=== PATIENT | female | born 1935 | race Caucasian/White ===

== ENCOUNTER 2017-06-06 08:35 | Outpatient (CLI) | payer MEDICARE ==
[2017-06-06 09:56] LABS: Hemoglobin 13.1 g/dL (12.0-16.0); Mean Corpuscular Hemoglobin 27.6 pg (27.0-31.0); Mean Corpuscular Volume 83.7 fl (81.0-99.0); Mean Platelet Volume 9.3 fL (7.4-10.4); Platelet Count 244 thou/uL (130-400); RBC Distribution Width 15.4 % (11.5-14.5); Red Blood Cell (RBC) Count 4.75 mill/uL (4.20-5.40); White Blood Cell (WBC) Count 5.6 thou/uL (4.8-10.8)
[2017-06-06 10:06] LABS: INR-International Normal Ratio 0.9; PTT 25.1 SEC (22.9-36.1); Prothrombin Time 12.7 SEC (12.0-14.7)
[2017-06-06 10:08] LABS: Hemoglobin A1c 5.3 % (4.0-6.0)
[2017-06-06 10:18] LABS: Anion Gap 13 mmol/L (10-20); BUN (Urea Nitrogen) 21 mg/dL (9.8-20.1); Calc. Creatinine Clearance 0 mL/min (70-130); Calcium 9.4 mg/dL (7.8-10.44); Carbon Dioxide 25 mmol/L (23-31); Chloride 104 mmol/L (98-107); Estimated GFR-MDRD 51; Glucose 99 mg/dL (83-110); Potassium 3.1 mmol/L (3.5-5.1); Sodium 139 mmol/L (136-145)
== END 2017-06-06 08:36 | disposition home or self-care (01) ==
LOC: LABBT 08:35
PROVIDERS: ATTEND Orthopaedic Surgery
DX: Z01.810 Encounter for preprocedural cardiovascular examination (principal); Z01.812 Encounter for preprocedural laboratory examination; M17.12 Unilateral primary osteoarthritis, left knee
CPT/HCPCS: 80048; 83036; 85027; 85610; 85730; 86850; 86900; 86901; 87081; 93005; 93010

== ENCOUNTER 2017-06-06 08:45 | Inpatient (IN) | payer MEDICARE ==
[2017-06-06 09:14] VITALS: BMI 30.9
[2017-06-12] MEDS ORDERED: CEFAZOLIN/Water 2 GM/20 ML SYRINGE ONE (10:29)
[2017-06-12] MEDS ORDERED: Tranexamic Acid 1,000 MG/100 ML BAG ONE ×2 (10:29→14:03)
[2017-06-12] MEDS ORDERED: Fentanyl 100 MCG/2 ML VIAL IV PRN (11:17)
[2017-06-12] MEDS ORDERED: Ondansetron PF 4 MG/2 ML Vial IVP PRN ×2 (11:17→13:54)
[2017-06-12] MEDS ORDERED: traMADol HCl 50 MG TAB PO PRN ×3 (11:17→13:54)
[2017-06-12] MEDS ORDERED: Promethazine HCl 25 MG/ML VIAL IM PRN ×3 (11:17→13:54)
[2017-06-12] MEDS ORDERED: Ropivacaine 0.2% 550 ML 550 ML NERVE BLCK SCH (11:17)
[2017-06-12] MEDS ORDERED: Zolpidem Tartrate 5 MG TAB PO PRN (11:17)
[2017-06-12] MEDS ORDERED: Midazolam HCl 2 mg/2 ml Vial ONE (11:18)
[2017-06-12] MEDS ORDERED: HYDROcodone/Acetaminophen 7.5/325 mg Tablet PO PRN ×2 (11:18→13:57)
[2017-06-12] MEDS ORDERED: Fentanyl 100 MCG/2 ML VIAL ONE (11:18)
[2017-06-12] MEDS ORDERED: Bupivacaine 0.25% HCL 30 ML VIAL ONE (11:27)
[2017-06-12] MEDS ORDERED: Neomycin-Polymyxin 1 ML AMP ONE (11:27)
[2017-06-12] MEDS ORDERED: Ondansetron HCl/PF 4 MG/2 ML Vial IVP PRN (12:44)
[2017-06-12] MEDS ORDERED: Promethazine HCl 25 MG/ML VIAL SLOW IVP PRN (12:44)
[2017-06-12] MEDS ORDERED: Acetaminophen 325 MG TAB PO PRN (13:54)
[2017-06-12] MEDS ORDERED: diphenhydrAMINE 25 MG CAP PO PRN (13:54)
[2017-06-12] MEDS ORDERED: Acetaminophen/Codeine 30-300mg Tablet PO PRN ×2 (13:54)
[2017-06-12] MEDS ORDERED: Tranexamic Acid 1,000 MG in Sodium Chloride 0.9% 100 ML IVPB SCH (14:00)
[2017-06-12] MEDS ORDERED: Acetaminophen 1,000 MG in Premix Bag 1 BAG IVPB SCH (14:00)
[2017-06-12] MEDS ORDERED: Ropivacaine 0.5% HCl/PF (150 MG/30 ML VIAL) ONE (14:02)
[2017-06-12] MEDS ORDERED: Ropivacaine 0.2% HCl/PF (40 MG/20 ML VIAL) ONE (14:02)
--- NOTE | 2017-06-12 14:58 | RAD ---
LEFT KNEE TWO VIEWS: History: Post op. FINDINGS: Total knee prosthesis is in place. No fracture. Prosthesis is in good position. IMPRESSION: Post-operative change with placement of left knee prosthesis. POS: [facility]
[2017-06-12] MEDS ORDERED: PROPOFOL 200 MG/20 ML VIAL ONE (15:01)
[2017-06-12] MEDS ORDERED: Ketorolac Tromethamine 30 MG/ML VIAL ONE (15:01)
[2017-06-12] MEDS ORDERED: Ondansetron PF 4 MG/2 ML Vial ONE (15:01)
[2017-06-12] MEDS ORDERED: ePHEDrine/0.9% NaCl/PF SYRINGE 50 mg/10 ml ONE (15:01)
[2017-06-12] MEDS ORDERED: Lidocaine 1% PF 5 ML VIAL ONE (15:01)
[2017-06-12] MEDS ORDERED: CEFAZOLIN/Water 2 GM/20 ML SYRINGE SLOW IVP SCH (18:00)
[2017-06-12] MEDS: Sodium Chloride 0.9% 1,000 ML IV SCH (18:29)
[2017-06-12] MEDS: Aspirin 81 mg Enteric Coated Tablet PO SCH (20:27)
[2017-06-12] MEDS: Atorvastatin Calcium 40 MG TAB PO SCH (20:27)
[2017-06-12] MEDS: CEFAZOLIN/Water 2 GM/20 ML SYRINGE SLOW IVP SCH (20:27)
[2017-06-12] MEDS: Senokot S 8.6-50 MG TAB PO SCH (20:28)
[2017-06-12] MEDS: Ferrous Gluconate 324 MG TAB PO SCH (20:28)
[2017-06-12] MEDS: HYDROcodone/Acetaminophen 7.5/325 mg Tablet PO PRN (22:21)
[2017-06-13] MEDS: Sodium Chloride 0.9% 1,000 ML IV SCH ×3 (00:22→20:11)
[2017-06-13] MEDS: HYDROcodone/Acetaminophen 7.5/325 mg Tablet PO PRN ×4 (03:48→20:18)
[2017-06-13] MEDS: CEFAZOLIN/Water 2 GM/20 ML SYRINGE SLOW IVP SCH (04:23)
[2017-06-13 06:14] LABS: Hemoglobin 10.7 g/dL (12.0-16.0); Mean Corpuscular HGB CONC 32.6 g/dL (32.0-36.0); Mean Corpuscular Hemoglobin 27.8 pg (27.0-31.0); Mean Corpuscular Volume 85.2 fl (81.0-99.0); Mean Platelet Volume 9.2 fL (7.4-10.4); Platelet Count 171 thou/uL (130-400); RBC Distribution Width 15.4 % (11.5-14.5); Red Blood Cell (RBC) Count 3.84 mill/uL (4.20-5.40); White Blood Cell (WBC) Count 7.2 thou/uL (4.8-10.8)
[2017-06-13] MEDS: Levothyroxine Sodium 100 MCG TAB PO SCH (06:38)
--- NOTE | 2017-06-13 08:30 | CON ---
DATE OF CONSULTATION: 06/13/2017 REASON FOR CONSULTATION: Medical management. HISTORY OF PRESENT ILLNESS: The patient is a pleasant 81-year-old female known to us with a history of multiple medical problems to include hypertension and hyperlipidemia. She underwent a left total knee arthroplasty on 06/12/2017 and is postoperatively doing well and appears to be hemodynamically s table, in no acute distress. Consultation was sought for medical management. She denies any chest, arm or back pain. She also denies any PND, orthopnea or palpitations. PAST MEDICAL HISTORY: 1. Hypertension. 2. Hyperlipidemia. 3. Gastroesophageal reflux disease. 4. History of vitamin D insufficiency. 5. History of depression and anxiety. 6. Hypothyroidism. PAST SURGICAL HISTORY: 1. History of total hysterectomy. 2. History of appendectomy. ALLERGIES: None. MEDICATIONS: 1. Atorvastatin 40 mg at bedtime. 2. Cardura 180 mg 3. Prozac 20 mg daily. 4. Hydrochlorothiazide 25 mg daily. 5. Hydrocodone p.r.n. 6. Levothyroxine 100 mcg daily. 7. Meloxicam 15 mg every day. 8. Prilosec 40 mg every day. SOCIAL HISTORY: She does not smoke or drink alcohol. FAMILY HISTORY: Noncontributory. REVIEW OF SYSTEMS: GENERAL: Admits to weakness, fatigue, no fever or chills. HEENT: No diplopia, amaurosis fugax, tinnitus, sore throat or hoarseness. CARDIOVASCULAR: No chest, arm or back pain. PULMONARY: No PE, cough, hemoptysis. GASTROINTESTINAL: No GI bleed, constipation, diarrhea. GENITOURINARY: No dysuria, nocturia, oliguria or polyuria. ENDOCRINE: No polyphagia, polydipsia or heat or cold intolerance. MUSCULOSKELETAL: Admits to arthralgias. No lupus or myopathy. NEUROLOGIC: No history of TIA or seizure. All other systems are negative. PHYSICAL EXAMINATION: GENERAL: Rustam female who appears to be in no acute distress. VITAL SIGNS: Her blood pressure 140/70, pulse 60, respirations 18. She is afebrile. NECK: Supple with no increased JVP or carotid bruit. Carotid had good upstroke with no thyromegaly. COR: Regular rate and rhythm. CHEST: Symmetrical. Clear to auscultation and percussion. ABDOMEN: Soft, nontender with normoactive bowel sounds. There is no bruit or organomegaly. EXTREMITIES: No edema or cyanosis. She had the left knee wrapped with chiqui. She had palpable pedal pulses. SKIN: There is no evidence of ulcer, lesion or rash. NEUROLOGIC: She is awake, alert, and oriented to person, place, and time. LABORATORY DATA: Her H&H 10.7 and 32.7, white blood cells are fine. There is no other lab in the art. ASSESSMENT: 1. Status post left total knee arthroplasty. 2. Hypertension. 3. Hyperlipidemia. 4. Depression/anxiety. 5. Hypothyroidism. PLAN: 1. We will resume her home medications. 2. We will follow up with lab in the morning if the patient is still here. I thank Dr. Melendez for allowing us to participate in the patient's care.
[2017-06-13] MEDS: Multivitamin W/ Minerals 1 TAB PO SCH (09:30)
[2017-06-13] MEDS: Senokot S 8.6-50 MG TAB PO SCH ×2 (09:30→20:17)
[2017-06-13] MEDS: FLUoxetine HCl 20 MG CAP PO SCH (09:30)
[2017-06-13] MEDS: Hydrochlorothiazide 25 MG TAB PO SCH (09:30)
[2017-06-13] MEDS: Aspirin 81 mg Enteric Coated Tablet PO SCH ×2 (09:30→20:17)
[2017-06-13] MEDS: Ferrous Gluconate 324 MG TAB PO SCH ×2 (09:31→20:17)
--- NOTE | 2017-06-13 12:36 | OP ---
DATE OF PROCEDURE: 06/12/2017 PREOPERATIVE DIAGNOSIS: Osteoarthritis, left knee. POSTOPERATIVE DIAGNOSIS: Osteoarthritis, left knee. PROCEDURE: Left total knee arthroplasty. ANESTHESIA: General. SURGEON: Scot Melendez M.D. COMPLICATIONS: None. CONDITION: Good. ESTIMATED BLOOD LOSS: Minimal. DRAINS: None. TOURNIQUET: Per anesthesia. TECHNIQUE: Consent was obtained. The patient was taken to the operating room, placed in the supine position. After adequate general anesthesia was achieved, the patient's left knee was examined. The patient had significant medial arthrosis with varus deformity using the reverse marked crepitus. Sh e lacked approximately 10 degrees full extension and had 115 degrees of flexion. The left knee was t hen positioned, prepped and draped in usual surgical sterile fashion. Tourniquet placed on left uppe r thigh. Leg was elevated, exsanguinated, and tourniquet inflated prior to incision. Standard midli ne vertical incision was made, it was taken down to subcutaneous tissues exposing extensor mechanism. Medial parapatellar arthrotomy was performed. Patella subluxed laterally. The patient had signifi cant tricompartmental disease with mainly medial compartment erosion and large osteophytes. Using in tramedullary guide, a distal 5 degree valgus resection on the femur was performed using AP and epicon dylar access. Proper rotation and position of the size 3 cutting block was placed. Anterior, burr bench operator ior, and chamfer cuts were completed for the size 3 evolution femur. Tibia was then subluxed anterio rly. Using external guide, appropriate resection was performed measuring from the medial compartment . Minimal resection was obtained, the menisci and cruciate ligaments were then debrided and flexion and extension gaps were then checked and had good balancing at 0 to 90 degrees with 10 mm spacer. Th e patella was then measured approximately 6-7 mm resection performed in a 32 mm patella. A 29 mm pat jocelyne was medialized. Trial components were then placed 3 femur, 3 tibia, and 29 patella with a 10 mm bearing surface. Put through range of motion. The patient had full flexion and extension, good bal ancing and normal patellofemoral alignment tracking. The surfaces were then irrigated copiously, dri ed, and the femur, tibia, and patella cemented. Excess cement removed and again trialed with the 10 mm bearing surface and a 10 mm medial pivot bearing implant was then placed and snap fit. Hemostasis obtained. Arthrotomy closed with #2 mersilene, #1 Vicryl, subcutaneous with 0 and 2-0 Vicryl, and t he skin with yoana. Sterile bulky dressing was applied and the patient was taken to recovery in st able condition. Prognosis is good. Begin rehab protocol.
[2017-06-13] MEDS: Atorvastatin Calcium 40 MG TAB PO SCH (20:17)
[2017-06-14 04:44] LABS: #Eosinphils 0.1 thou/uL (0.0-0.7); #Lymphocytes 1.4 thou/uL (1.20-3.40); #Monocytes 1.2 thou/uL (0.11-0.59); #Neutrophils 5.8 thou/uL (1.40-6.50); %Basophils 0.4 % (0.0-1.0); %Eosinophils 1.2 % (0.0-10.0); %Lymphocytes 16.6 % (21.0-51.0); %Monocytes 14.2 % (0.0-10.0); %Neutrophils 67.6 % (42.0-75.0); Hemoglobin 10.3 g/dL (12.0-16.0); Mean Corpuscular HGB CONC 32.2 g/dL (32.0-36.0); Mean Corpuscular Hemoglobin 27.5 pg (27.0-31.0); Mean Corpuscular Volume 85.5 fl (81.0-99.0); Mean Platelet Volume 9.5 fL (7.4-10.4); Platelet Count 176 thou/uL (130-400); RBC Distribution Width 15.5 % (11.5-14.5); Red Blood Cell (RBC) Count 3.74 mill/uL (4.20-5.40); White Blood Cell (WBC) Count 8.5 thou/uL (4.8-10.8)
[2017-06-14 04:45] LABS: Hemoglobin 10.4 g/dL (12.0-16.0); Mean Corpuscular HGB CONC 32.3 g/dL (32.0-36.0); Mean Corpuscular Hemoglobin 27.6 pg (27.0-31.0); Mean Corpuscular Volume 85.5 fl (81.0-99.0); Mean Platelet Volume 9.8 fL (7.4-10.4); Platelet Count 175 thou/uL (130-400); RBC Distribution Width 15.5 % (11.5-14.5); Red Blood Cell (RBC) Count 3.77 mill/uL (4.20-5.40); White Blood Cell (WBC) Count 7.9 thou/uL (4.8-10.8)
[2017-06-14 04:51] LABS: ALT (SGPT) 8 U/L (8-55); AST (SGOT) 15 U/L (5-34); Albumin 3.2 g/dL (3.4-4.8); Alkaline Phosphatase 64 U/L (40-150); Anion Gap 9 mmol/L (10-20); BUN (Urea Nitrogen) 12 mg/dL (9.8-20.1); Bilirubin, Total 0.8 mg/dL (0.2-1.2); Calc. Creatinine Clearance 69 mL/min (70-130); Calcium 8.6 mg/dL (7.8-10.44); Carbon Dioxide 32 mmol/L (23-31); Chloride 98 mmol/L (98-107); Estimated GFR-MDRD 67; Globulin 2.6 g/dL (2.4-3.5); Glucose 93 mg/dL (83-110); Protein, Total 5.8 g/dL (6.0-8.3); Sodium 136 mmol/L (136-145)
[2017-06-14 04:57] LABS: Potassium 2.6 mmol/L (3.5-5.1)
[2017-06-14] MEDS: Sodium Chloride 0.9% 1,000 ML IV SCH (05:27)
[2017-06-14] MEDS ORDERED: Magnesium 2 GM/NS 0.9% 100 ML 2 GM in Premix Bag 1 BAG IVPB SCH (05:30)
[2017-06-14] MEDS: Potassium Chloride 20 MEQ TAB PO SCH ×3 (05:55→13:42)
[2017-06-14] MEDS: Levothyroxine Sodium 100 MCG TAB PO SCH (05:56)
[2017-06-14] MEDS: HYDROcodone/Acetaminophen 7.5/325 mg Tablet PO PRN ×3 (05:57→14:12)
[2017-06-14 08:07] LABS: Potassium 2.7 mmol/L (3.5-5.1)
[2017-06-14] MEDS: Ferrous Gluconate 324 MG TAB PO SCH (08:54)
[2017-06-14] MEDS: FLUoxetine HCl 20 MG CAP PO SCH (08:54)
[2017-06-14] MEDS: Aspirin 81 mg Enteric Coated Tablet PO SCH (08:54)
[2017-06-14] MEDS: Hydrochlorothiazide 25 MG TAB PO SCH (08:54)
[2017-06-14] MEDS: Multivitamin W/ Minerals 1 TAB PO SCH (08:55)
[2017-06-14] MEDS: Senokot S 8.6-50 MG TAB PO SCH (08:55)
[2017-06-14 11:58] VITALS: BP 123/67; TEMP 97.5
--- NOTE | 2017-10-30 22:38 | CON ---
DATE OF CONSULTATION: 10/30/2017 DATE OF ADMISSION: 10/30/2017 REASON FOR CONSULTATION: Medical management. HISTORY OF PRESENT ILLNESS: Patient is an 82-year-old female with multiple medical problems to [facility] de hypertension and hyperlipidemia who underwent a right hip replacement in May of this year and today has undergone a right knee replacement. Postoperatively, she is doing well. Appears to be he modynamically stable, in no acute distress. I will provide medical management for this patient while hospitalized. PAST MEDICAL HISTORY: Includes hypertension, hyperlipidemia, gastroesophageal reflux, vitamin D defi ciency, depression, anxiety and hypothyroidism. PAST SURGICAL HISTORY: Includes total hysterectomy, appendectomy, right hip replacement and today to emmanuel right knee replacement. ALLERGIES: None. MEDICATIONS: Include atorvastatin 40 at bedtime, Cardura 100 mg daily, Prozac 20 mg daily, HCTZ 25 m g daily, hydrocodone p.r.n., levothyroxine 100 mcg daily, Meloxicam 15 mg daily and Prilosec 40 mg da alyssa. SOCIAL HISTORY: She does not smoke or drink alcoholic beverages. FAMILY HISTORY: Noncontributory. REVIEW OF SYSTEMS: GENERAL: Denies fever, chills, fatigue. HEENT: Denies diplopia, loss of vision , hoarseness, drainage, eye pain. Ears and nose pain, throat pain. CHEST: Denies shortness of damon th or dyspnea. CARDIOVASCULAR: Denies chest pain or palpitations. GI: Denies constipation, diarrhea and nausea. : Denies dysuria, oliguria or polyuria. ENDOCRINE : There is no polyphagia, polydipsia, heat or cold intolerance. MUSCULOSKELETAL: She is here for r ight knee pain and currently her greatest pain is actually in her right hip. NEUROLOGIC: Neurologic ally denies TIAs, memory loss, seizures. SKIN: No new rashes or lesions. PSYCHOLOGICAL: No new depression or anxiety. PHYSICAL EXAMINATION: VITAL SIGNS: At the time of admission, blood pressure is 131/58, pulse 60, respirations 16, temperat ure 98 degrees and O2 sat 98%. GENERAL: This is a well-developed, well-nourished, alert, responsive elderly female in no acute dist ress. HEENT: Normocephalic and atraumatic. Pupils are equal, round, and reactive to light. Arcus senilis bilaterally. TMs; nares, pharynx clear. NECK: Supple, trachea midline. CHEST: Clear to auscultation. Breast exam deferred. BACK: Nontender. HEART: Regular rate and rhythm, no murmur. ABDOMEN: Soft and nontender without organomegaly. GENITOURINARY: Deferred. EXTREMITIES: Right knee is bandaged with some swelling noted. Left lower extremity and upper extrem ities are without clubbing, cyanosis, or edema. Normal range of motion. SKIN: Without acute rashes or lesions. NEUROLOGIC: Cranial nerves are intact. Unable to test gait and cerebellar function at this time. S ensory exam is grossly intact except over the right knee surgical area. LABORATORY DATA: Lab work thus far. On 10/26/2017, WBCs are 5.8, hemoglobin 11.2, hematocrit 34.1 w ith platelets at 247,000. PT is 13.3, INR 1.0 APTT of 22.8. Sodium is 140, potassium 3.7, chloride 102, CO2 28, BUN 16, creatinine 0.85 with GFR of 63, glucose is 88, hemoglobin A1c 5.3, calcium 9.7, total bilirubin 0.8, AST 15, ALT 8, alkaline phosphatase 64. ASSESSMENT: 1. Status post right total knee replacement. 2. Hypertension. 3. Hyperlipidemia. 4. Gastroesophageal reflux disease. PLAN: Plan is to provide the routine medication and serial reevaluation to medically care for this p atient. Anticipate a normal postop surgical course and follow up will be in my office after discharg eDeepak
== END 2017-06-14 15:45 | disposition home or self-care (01) | DRG 470 ==
LOC: EDSTATUS 06-12 08:45 → SURG A 06-12 09:38 → SJJU 06-12 14:42
PROVIDERS: ADMIT Orthopaedic Surgery; ATTEND Orthopaedic Surgery
PROC: 0SRD0J9 Replacement of Left Knee Joint with Synthetic Substitute, Cemented, Open Approach (ICD-10-PCS; principal; 2017-06-12)
PROC: 3E0T3BZ Introduction of Anesthetic Agent into Peripheral Nerves and Plexi, Percutaneous Approach (ICD-10-PCS; 2017-06-12)
DX: M17.12 Unilateral primary osteoarthritis, left knee (principal); E03.9 Hypothyroidism, unspecified; I10 Essential (primary) hypertension; E78.5 Hyperlipidemia, unspecified; K21.9 Gastro-esophageal reflux disease without esophagitis; E55.9 Vitamin D deficiency, unspecified; F32.9 Major depressive disorder, single episode, unspecified; F41.9 Anxiety disorder, unspecified; Z87.891 Personal history of nicotine dependence
CPT/HCPCS: 36415; 80053; 83735; 85027; A4306; C1713; C1776; G8978-GP-CK; G8979-GP-CI; J1885; J2001; J2250; J2405; J2704; J2795; J3010; J3475; S0020

== ENCOUNTER 2017-10-26 13:02 | Outpatient (CLI) | payer MEDICARE ==
[2017-10-26 15:35] LABS: Hemoglobin 11.2 g/dL (12.0-16.0); Mean Corpuscular HGB CONC 32.8 g/dL (32.0-36.0); Mean Corpuscular Hemoglobin 26.2 pg (27.0-31.0); Mean Corpuscular Volume 79.8 fL (78.0-98.0); Mean Platelet Volume 8.4 fL (7.4-10.4); Platelet Count 247 thou/uL (130-400); RBC Distribution Width 14.7 % (11.5-14.5); Red Blood Cell (RBC) Count 4.27 mill/uL (4.20-5.40); White Blood Cell (WBC) Count 5.8 thou/uL (4.8-10.8)
[2017-10-26 15:40] LABS: Prothrombin Time 13.3 SEC (12.0-14.7)
[2017-10-26 15:41] LABS: PTT 22.8 SEC (22.9-36.1)
[2017-10-26 15:55] LABS: Anion Gap 14 mmol/L (10-20); BUN (Urea Nitrogen) 16 mg/dL (9.8-20.1); Calc. Creatinine Clearance 0 mL/min (70-130); Calcium 9.7 mg/dL (7.8-10.44); Carbon Dioxide 28 mmol/L (23-31); Chloride 102 mmol/L (98-107); Estimated GFR-MDRD 63; Glucose 88 mg/dL (83-110); Potassium 3.7 mmol/L (3.5-5.1); Sodium 140 mmol/L (136-145)
== END 2017-10-26 13:03 | disposition home or self-care (01) ==
LOC: LABBT 13:02
PROVIDERS: ATTEND Orthopaedic Surgery
DX: Z01.818 Encounter for other preprocedural examination (principal); M17.11 Unilateral primary osteoarthritis, right knee
CPT/HCPCS: 80048; 85027; 85610; 85730; 86850; 86900; 86901; 87081; 93005; 93010

== ENCOUNTER 2017-10-30 07:14 | Day surgery (SDC) | payer MEDICARE ==
[2017-10-26 13:22] VITALS: BMI 29.2
[2017-10-30] MEDS ORDERED: Midazolam HCl 2 mg/2 ml Vial ONE (08:02)
[2017-10-30] MEDS ORDERED: Fentanyl 100 MCG/2 ML VIAL ONE (08:02)
[2017-10-30] MEDS ORDERED: CEFAZOLIN/Water 2 GM/20 ML SYRINGE ONE (08:06)
[2017-10-30] MEDS ORDERED: Sodium Chloride 0.9% 100 ML ONE (08:06)
[2017-10-30] MEDS ORDERED: Zolpidem Tartrate 5 MG TAB PO PRN (08:31)
[2017-10-30] MEDS ORDERED: Promethazine HCl 25 MG/ML VIAL IM PRN ×3 (08:31→12:26)
[2017-10-30] MEDS ORDERED: traMADol HCl 50 MG TAB PO PRN ×3 (08:31→12:26)
[2017-10-30] MEDS ORDERED: Ondansetron HCl/PF 4 MG/2 ML Vial IVP PRN ×3 (08:31→12:26)
[2017-10-30] MEDS ORDERED: Ketorolac Tromethamine 30 MG/ML VIAL IVP PRN (08:31)
[2017-10-30] MEDS ORDERED: Fentanyl 100 MCG/2 ML VIAL IV PRN (08:32)
[2017-10-30] MEDS ORDERED: HYDROcodone/Acetaminophen 7.5/325 mg Tablet PO PRN (08:32)
[2017-10-30] MEDS ORDERED: Neomycin-Polymyxin 1 ML AMP ONE (10:04)
[2017-10-30] MEDS ORDERED: Bupivacaine/Epinephrine 0.25% 30 ML VIAL ONE (10:04)
[2017-10-30] MEDS ORDERED: Promethazine HCl 25 MG/ML VIAL SLOW IVP PRN (10:51)
[2017-10-30] MEDS ORDERED: Acetaminophen 325 MG TAB PO PRN (12:26)
[2017-10-30] MEDS ORDERED: Acetaminophen/Codeine 30-300mg Tablet PO PRN ×2 (12:26)
[2017-10-30] MEDS ORDERED: Acetaminophen 1,000 MG in Premix Bag 1 BAG IVPB SCH (12:30)
[2017-10-30] MEDS ORDERED: Tranexamic Acid 1,000 MG in Sodium Chloride 0.9% 100 ML IVPB SCH (12:45)
--- NOTE | 2017-10-30 14:13 | RAD ---
RIGHT KNEE TWO VIEWS: HISTORY: Status post right knee arthroplasty. COMPARISON: None. FINDINGS: Two views of the right knee show the patient to be status post right knee arthroplasty without periha rdware lucency or fracture. Air in the soft tissues and overlying skin yoana are from recent surge ry. IMPRESSION: Status post right knee arthroplasty without evidence of complication. POS: [facility]
[2017-10-30] MEDS ORDERED: Ropivacaine 0.5% HCl/PF (150 MG/30 ML VIAL) ONE (14:30)
[2017-10-30] MEDS ORDERED: Bupivacaine 0.25% HCL 30 ML VIAL ONE (14:30)
[2017-10-30] MEDS ORDERED: Bupivacaine HCl 0.5%/Epinephrine 1:200,000/PF 30 ml Vial ONE (14:30)
[2017-10-30] MEDS ORDERED: ePHEDrine/0.9% NaCl/PF SYRINGE 50 mg/10 ml ONE (15:08)
[2017-10-30] MEDS ORDERED: Lidocaine 1% PF 5 ML VIAL ONE (15:08)
[2017-10-30] MEDS ORDERED: PROPOFOL 200 MG/20 ML VIAL ONE (15:08)
[2017-10-30] MEDS ORDERED: Ondansetron HCl/PF 4 MG/2 ML Vial ONE (15:08)
[2017-10-30] MEDS: Sodium Chloride 0.9% 1,000 ML IV SCH ×2 (15:17→20:31)
[2017-10-30] MEDS ORDERED: CEFAZOLIN/Water 2 GM/20 ML SYRINGE SLOW IVP SCH (16:00)
[2017-10-30] MEDS: CEFAZOLIN/Water 2 GM/20 ML SYRINGE SLOW IVP SCH (18:46)
[2017-10-30] MEDS: Aspirin 81 mg Enteric Coated Tablet PO SCH (20:28)
[2017-10-30] MEDS: Atorvastatin Calcium 40 MG TAB PO SCH (20:28)
[2017-10-30] MEDS: Senokot S 8.6-50 MG TAB PO SCH (20:29)
[2017-10-30] MEDS: Ferrous Gluconate 324 MG TAB PO SCH (20:29)
[2017-10-31] MEDS: HYDROcodone/Acetaminophen 7.5/325 mg Tablet PO PRN ×4 (00:16→18:11)
[2017-10-31] MEDS: Calcium Carbonate 500 MG ChewTAB PO PRN ×4 (01:05→23:14)
[2017-10-31] MEDS: Bupivacaine 0.5% 50 ML in Sodium Chloride 0.9% 50 ML NERVE BLCK SCH ×2 (01:05→14:37)
[2017-10-31] MEDS: CEFAZOLIN/Water 2 GM/20 ML SYRINGE SLOW IVP SCH (03:00)
[2017-10-31 05:02] LABS: Hemoglobin 9.3 g/dL (12.0-16.0); Mean Corpuscular HGB CONC 32.4 g/dL (32.0-36.0); Mean Corpuscular Volume 80.2 fL (78.0-98.0); Mean Platelet Volume 8.6 fL (7.4-10.4); Platelet Count 193 thou/uL (130-400); RBC Distribution Width 14.6 % (11.5-14.5); Red Blood Cell (RBC) Count 3.57 mill/uL (4.20-5.40); White Blood Cell (WBC) Count 7.3 thou/uL (4.8-10.8)
[2017-10-31] MEDS: Levothyroxine Sodium 100 MCG TAB PO SCH (06:00)
[2017-10-31] MEDS: Hydrochlorothiazide 25 MG TAB PO SCH (09:30)
[2017-10-31] MEDS: Aspirin 81 mg Enteric Coated Tablet PO SCH ×2 (09:30→20:46)
[2017-10-31] MEDS: FLUoxetine HCl 20 MG CAP PO SCH (09:32)
[2017-10-31] MEDS: Senokot S 8.6-50 MG TAB PO SCH ×2 (09:32→20:46)
[2017-10-31] MEDS: Multivitamin W/ Minerals 1 TAB PO SCH (09:32)
[2017-10-31] MEDS: Ferrous Gluconate 324 MG TAB PO SCH ×2 (09:32→20:47)
[2017-10-31] MEDS: Sodium Chloride 0.9% 1,000 ML IV SCH ×2 (09:49→18:59)
--- NOTE | 2017-10-31 12:11 | OP ---
DATE OF PROCEDURE: 10/30/2017 PREOPERATIVE DIAGNOSIS: Osteoarthrosis, right knee. POSTOPERATIVE DIAGNOSIS: Osteoarthrosis, right knee. PROCEDURE: Right total knee arthroplasty. ANESTHESIA: General. SURGEON: Dr. Scot Melendez VOICE STUDIES DIRECTOR: GINGER Oliveira COMPLICATIONS: None. CONDITION: Good. ESTIMATED BLOOD LOSS: Minimal. DRAINS: None. TOURNIQUET: Per anesthesia. TECHNIQUE: Consent was obtained. The patient was taken to the operating room and placed in supine p osition. Adequate general anesthesia achieved, the patient's right knee was examined. She had appro ximately 110 degrees of flexion, lacked 10 degrees full extension, mild varus deformity. She was the n positioned, prepped, and draped in usual sterile fashion. Tourniquet placed to right upper thigh. Leg was elevated, exsanguinated, and tourniquet inflated prior to incision. Standard midline vertic al incision was made. It was taken down to subcutaneous tissue exposing extensor mechanism. Medial parapatellar arthrotomy was performed. Patella subluxed laterally. The patient had advanced medial and patellofemoral disease. Using intramedullary guide, distal 5 degree resection on the femur was p erformed. Using AP and epicondylar access, proper rotation and position, a size 3 cutting block was placed. Anterior, posterior, and chamfer cuts were completed for the size 3 evolution femur. Tibia was then subluxed anteriorly. Appropriate resection was performed using external guide. Cruciate li gaments were debrided and a flexion, extension gaps checked at 0 and 90 degrees, good balancing was n oted. The patella was then measured approximately 6-7 mm resection was performed and a 29 mm patella was medialized. The trial components were then placed, a 3 femur, 3 tibia, 10 mm bearing surface, 2 9 patella was put through range of motion. The patient had full flexion and extension, good alignmen t and range of motion was noted. The tibial baseplate was then marked and prepared with a broach. A ll surfaces were irrigated copiously, dried. Femur, tibia, and patella cemented. Again, trialed wit h the 10 mm bearing surface. This was chosen and snap fit. After copious irrigation arthrotomy clos ed #2 mersilene, #1 Vicryl, subq with 0 and 2-0 Vicryl, and the skin with yoana. Sterile bulky yan ssing was applied and the patient taken to recovery. Prognosis is good.
[2017-10-31] MEDS: Atorvastatin Calcium 40 MG TAB PO SCH (20:47)
[2017-11-01] MEDS: Sodium Chloride 0.9% 1,000 ML IV SCH (02:51)
[2017-11-01] MEDS: Bupivacaine 0.5% 50 ML in Sodium Chloride 0.9% 50 ML NERVE BLCK SCH (02:53)
[2017-11-01 04:48] LABS: Hemoglobin 10.2 g/dL (12.0-16.0); Mean Corpuscular HGB CONC 32.1 g/dL (32.0-36.0); Mean Corpuscular Hemoglobin 25.6 pg (27.0-31.0); Mean Corpuscular Volume 79.6 fL (78.0-98.0); Mean Platelet Volume 8.6 fL (7.4-10.4); Platelet Count 226 thou/uL (130-400); RBC Distribution Width 14.6 % (11.5-14.5); Red Blood Cell (RBC) Count 3.98 mill/uL (4.20-5.40); White Blood Cell (WBC) Count 10.2 thou/uL (4.8-10.8)
[2017-11-01] MEDS: HYDROcodone/Acetaminophen 7.5/325 mg Tablet PO PRN ×2 (06:21→12:19)
[2017-11-01] MEDS: Levothyroxine Sodium 100 MCG TAB PO SCH (06:22)
--- NOTE | 2017-11-01 06:56 | PRG ---
DATE OF SERVICE: 11/01/2017 The patient rested well. Her knee is bothering her this morning and she is up getting her bath. PHYSICAL EXAMINATION: VITAL SIGNS: Stable with blood pressure on 121/69, pulse 64, temperature 99, respirations 18, O2 sat 94%. GENERAL: Alert, elderly female in no acute distress, responsive. HEENT: Clear. NECK: Supple. CHEST: Clear to auscultation. HEART: Regular rate and rhythm, no murmur. ABDOMEN: Soft and nontender. EXTREMITIES: Right lower extremity with bandage in place. No other significant swelling, erythema, mild postoperative edema noted. Moderate tenderness and pain with the pain rated at a 6/10 at this t eyad. NEUROLOGIC: Nonfocal and intact. ASSESSMENT: 1. Postoperative day right total knee replacement #2 and doing well. 2. Hypertension, stable. PLAN: Continue to follow the patient to discharge. She is doing well, no specific complaints and an ticipate a routine hospital course. We will follow up after discharge.
[2017-11-01] MEDS: Multivitamin W/ Minerals 1 TAB PO SCH (09:10)
[2017-11-01] MEDS: Senokot S 8.6-50 MG TAB PO SCH (09:10)
[2017-11-01] MEDS: Ferrous Gluconate 324 MG TAB PO SCH (09:11)
[2017-11-01] MEDS: FLUoxetine HCl 20 MG CAP PO SCH (09:11)
[2017-11-01] MEDS: Hydrochlorothiazide 25 MG TAB PO SCH (09:11)
[2017-11-01 12:00] VITALS: BP 110/57; TEMP 98.1
== END 2017-11-01 12:56 | disposition home or self-care (01) ==
LOC: SDC 07:14 → SURG A 12:26 → SDC 11-01 12:56
PROVIDERS: ATTEND Orthopaedic Surgery
PROC: 0SRC0J9 Replacement of Right Knee Joint with Synthetic Substitute, Cemented, Open Approach (ICD-10-PCS; principal; 2017-10-30)
DX: M17.11 Unilateral primary osteoarthritis, right knee (principal); I10 Essential (primary) hypertension; M19.90 Unspecified osteoarthritis, unspecified site; F32.9 Major depressive disorder, single episode, unspecified; K21.9 Gastro-esophageal reflux disease without esophagitis; Z87.891 Personal history of nicotine dependence; Z79.82 Long term (current) use of aspirin; Z79.899 Other long term (current) drug therapy
CPT/HCPCS: 27447; 73560; 85027; 96374; 97116 ×3; 97139 ×3; 97150; 97530 ×2; C1713; C1776; G8978; G8979; 36415; A4216; J0670; J1885; J2001; J2250; J2405; J2704; J2795; J3010; J3490; J7050; S0020

== ENCOUNTER 2018-08-13 12:48 | Outpatient (CLI) | payer MEDICARE ==
--- NOTE | 2018-08-13 13:30 | ULT ---
Thyroid ultrasound INDICATION: Thyroid mass TECHNIQUE: Grayscale and color Doppler images were obtained of the thyroid gland. COMPARISON: None FINDINGS: Right thyroid lobe: The right thyroid lobe measures 5.4 x 2.0 x 2.1 cm. There is a well-circumscribed hyperechoic, mixed cystic and solid nodule involving the mid to inferior pole of the right thyroid gland measuring 3.7 x 1.97 x 3.1 cm. Thyroid isthmus: The thyroid isthmus measures 0.68 cm. There is a 5 x 6 x 6 mm hypoechoic well-circum scribed solid nodule within the right isthmus with associated macrocalcifications. Left thyroid lobe: The left thyroid lobe measures 4.4 x 3.0 x 2.2 cm. There is a mixed cystic and kaveh id nodule involving the mid to inferior pole of the left thyroid gland measuring 2.9 x 2.5 x 1.9 cm. IMPRESSION: 1. TI-RADS Category 2 lesion of the right thyroid lobe. No sonographic follow up is recommended. 2. TI-RADS Category 4 lesion of the thyroid isthmus. This lesion is below 1 cm in size. No sonographi c follow up is recommended. 3. TI-RADS Category 2 lesion of the left thyroid lobe. No sonographic follow up is recommended.
== END 2018-08-13 12:49 | disposition home or self-care (01) ==
LOC: BICULT 12:48
PROVIDERS: ATTEND Specialist
DX: E04.9 Nontoxic goiter, unspecified (principal); E07.89 Other specified disorders of thyroid
CPT/HCPCS: 76536

== ENCOUNTER 2020-05-22 12:59 | Outpatient (CLI) | payer MEDICARE ==
[2020-05-22] MEDS ORDERED: Magnevist 469MG/ML 20 ML VIAL ONE (14:25)
== END 2020-05-22 13:00 | disposition home or self-care (01) ==
LOC: BICMRI 12:59
PROVIDERS: ATTEND Specialist
DX: H02.401 Unspecified ptosis of right eyelid (principal); D32.9 Benign neoplasm of meninges, unspecified
CPT/HCPCS: 70553; 82565; A9579

== ENCOUNTER 2020-07-23 12:23 | Outpatient (CLI) | payer MEDICARE ==
[2020-07-23] MEDS ORDERED: Iopamidol-370 76% 500 ML 1 ML ONE (13:55)
== END 2020-07-23 12:24 | disposition home or self-care (01) ==
LOC: BICCT 12:23
PROVIDERS: ATTEND Nurse Practitioner Acute Care
DX: G70.00 Myasthenia gravis without (acute) exacerbation (principal); R91.8 Other nonspecific abnormal finding of lung field
CPT/HCPCS: 71270; 82565; Q9967

== ENCOUNTER 2020-08-14 13:54 | Outpatient (CLI) | payer MEDICARE | END 2020-08-14 13:55 | disposition home or self-care (01) | LOC: BICULT 13:54 | PROVIDERS: ATTEND Student in an Organized Health Care Education/Training Program | DX: E01.0 Iodine-deficiency related diffuse (endemic) goiter (principal); E07.89 Other specified disorders of thyroid | CPT/HCPCS: 76536 ==

== ENCOUNTER 2022-04-11 11:46 | Day surgery (SDC) | payer MEDICARE ==
[~2022-04-11 11:46] MED LIST: ADMIXTURE FEE CHEMO IVPB SCH; IMMUNE GLOBULIN IVPB SCH
[2022-04-11 12:06] VITALS: BP 152/69; TEMP 97.7
== END 2022-04-11 15:12 | disposition home or self-care (01) ==
LOC: ONC/OP 11:46
PROVIDERS: ATTEND Psychiatry & Neurology Neurology
DX: G70.00 Myasthenia gravis without (acute) exacerbation (principal)
CPT/HCPCS: 96365; 96366; J1568

== ENCOUNTER 2022-05-02 11:31 | Day surgery (SDC) | payer MEDICARE ==
[~2022-05-02 11:31] MED LIST changes: -ADMIXTURE FEE CHEMO IVPB SCH; -IMMUNE GLOBULIN IVPB SCH; +Privigen 10 GM, Privigen 20 GM in Admixture Fee 1 EACH IVPB SCH
[2022-05-02 13:05] VITALS: BP 159/70; TEMP 98.1
== END 2022-05-02 18:07 | disposition home or self-care (01) ==
LOC: ONC/OP 11:31
PROVIDERS: ATTEND Psychiatry & Neurology Neurology
DX: G70.00 Myasthenia gravis without (acute) exacerbation (principal)
CPT/HCPCS: 96365; 96366; J1459

== ENCOUNTER 2022-05-23 11:42 | Day surgery (SDC) | payer MEDICARE ==
[2022-05-23 12:07] VITALS: BP 138/67; TEMP 97.8
== END 2022-05-23 14:30 | disposition home or self-care (01) ==
LOC: ONC/OP 11:42
PROVIDERS: ATTEND Psychiatry & Neurology Neurology
DX: G70.00 Myasthenia gravis without (acute) exacerbation (principal)
CPT/HCPCS: 96365; 96366; J1459

== ENCOUNTER 2022-05-24 13:38 | Outpatient (CLI) | payer MEDICARE | END 2022-05-24 13:39 | disposition home or self-care (01) | LOC: SCSMRI 13:38 | PROVIDERS: ATTEND Psychiatry & Neurology Neurology | DX: G70.00 Myasthenia gravis without (acute) exacerbation (principal); I67.89 Other cerebrovascular disease; G93.89 Other specified disorders of brain | CPT/HCPCS: 70551 ==

== ENCOUNTER 2022-06-13 11:35 | Day surgery (SDC) | payer MEDICARE ==
[2022-06-13 15:35] VITALS: BP 146/68; TEMP 97.8
== END 2022-06-13 15:15 | disposition home or self-care (01) ==
LOC: ONC/OP 11:35
PROVIDERS: ATTEND Psychiatry & Neurology Neurology
DX: G70.00 Myasthenia gravis without (acute) exacerbation (principal)
CPT/HCPCS: 96365; 96366; J1459

== ENCOUNTER 2022-07-04 11:39 | Day surgery (SDC) | payer MEDICARE ==
[2022-07-04 15:44] VITALS: BP 141/70; TEMP 97.9
== END 2022-07-04 14:45 | disposition home or self-care (01) ==
LOC: ONC/OP 11:39
PROVIDERS: ATTEND Psychiatry & Neurology Neurology
DX: G70.00 Myasthenia gravis without (acute) exacerbation (principal)
CPT/HCPCS: 96365; 96366; J1459

== ENCOUNTER 2022-07-25 11:38 | Day surgery (SDC) | payer MEDICARE ==
[2022-07-25 15:10] VITALS: BP 129/66; TEMP 97.7
== END 2022-07-25 15:40 | disposition home or self-care (01) ==
LOC: ONC/OP 11:38
PROVIDERS: ATTEND Psychiatry & Neurology Neurology
DX: G70.00 Myasthenia gravis without (acute) exacerbation (principal)
CPT/HCPCS: 96365; 96366; J1459 ×2

== ENCOUNTER 2022-08-15 11:30 | Day surgery (SDC) | payer MEDICARE ==
[2022-08-15 15:31] VITALS: BP 128/72; TEMP 97.8
== END 2022-08-15 15:28 | disposition home or self-care (01) ==
LOC: ONC/OP 11:30
PROVIDERS: ATTEND Psychiatry & Neurology Neurology
DX: G70.00 Myasthenia gravis without (acute) exacerbation (principal)
CPT/HCPCS: 96365; 96366; J1459 ×2

== ENCOUNTER 2022-09-05 11:46 | Day surgery (SDC) | payer MEDICARE ==
[2022-09-05 14:10] VITALS: BP 109/53; TEMP 97.8
== END 2022-09-05 15:09 | disposition home or self-care (01) ==
LOC: ONC/OP 11:46
PROVIDERS: ATTEND Psychiatry & Neurology Neurology
DX: G70.00 Myasthenia gravis without (acute) exacerbation (principal)
CPT/HCPCS: 96365; 96366; J1459 ×2

== ENCOUNTER 2022-11-28 11:35 | Day surgery (SDC) | payer MEDICARE ==
[2022-11-28 14:36] VITALS: BP 125/59; TEMP 97.9
== END 2022-11-28 14:36 | disposition home or self-care (01) ==
LOC: ONC/OP 11:35
PROVIDERS: ATTEND Psychiatry & Neurology Neurology
DX: G70.00 Myasthenia gravis without (acute) exacerbation (principal)
CPT/HCPCS: 96365; 96366; J1459 ×2

== ENCOUNTER 2022-12-15 11:54 | Outpatient (CLI) | payer MEDICARE | END 2022-12-15 11:55 | disposition home or self-care (01) | LOC: RAD 11:54 | PROVIDERS: ATTEND Psychiatry & Neurology Neurology | DX: G70.00 Myasthenia gravis without (acute) exacerbation (principal); H53.2 Diplopia; M47.812 Spondylosis without myelopathy or radiculopathy, cervical region | CPT/HCPCS: 72040 ==

== ENCOUNTER 2023-01-02 11:45 | Day surgery (SDC) | payer MEDICARE ==
[2023-01-02 15:48] VITALS: BP 140/65; TEMP 97.7
== END 2023-01-02 13:02 | disposition home or self-care (01) ==
LOC: ONC/OP 11:45
PROVIDERS: ATTEND Psychiatry & Neurology Neurology
DX: G70.00 Myasthenia gravis without (acute) exacerbation (principal)
CPT/HCPCS: 96416; 96417; J1459 ×2

== ENCOUNTER 2023-02-13 11:41 | Day surgery (SDC) | payer MEDICARE ==
[~2023-02-13 11:41] MED LIST changes: -Privigen 10 GM, Privigen 20 GM in Admixture Fee 1 EACH IVPB SCH; +Privigen 20 GM, Privigen 10 GM in Admixture Fee 1 EACH IVPB SCH
[2023-02-13 15:24] VITALS: BP 147/67; TEMP 98
== END 2023-02-13 15:36 | disposition home or self-care (01) ==
LOC: ONC/OP 11:41
PROVIDERS: ATTEND Psychiatry & Neurology Neurology
DX: G70.00 Myasthenia gravis without (acute) exacerbation (principal)
CPT/HCPCS: 96365; 96366; J1459 ×2

== ENCOUNTER 2023-03-02 13:31 | Outpatient (CLI) | payer MEDICARE | END 2023-03-02 13:32 | disposition home or self-care (01) | LOC: BICCT 13:31 | PROVIDERS: ATTEND Psychiatry & Neurology Neurology | DX: G70.00 Myasthenia gravis without (acute) exacerbation (principal); E04.1 Nontoxic single thyroid nodule; J84.10 Pulmonary fibrosis, unspecified; I25.10 Atherosclerotic heart disease of native coronary artery without angina pectoris; J98.11 Atelectasis; K44.9 Diaphragmatic hernia without obstruction or gangrene; N26.1 Atrophy of kidney (terminal); N28.1 Cyst of kidney, acquired | CPT/HCPCS: 71260 ==

== ENCOUNTER 2023-03-07 11:35 | Day surgery (SDC) | payer MEDICARE ==
[2023-03-07 15:14] VITALS: BP 142/86; TEMP 97.6
== END 2023-03-07 14:53 | disposition home or self-care (01) ==
LOC: ONC/OP 11:35
PROVIDERS: ATTEND Psychiatry & Neurology Neurology
DX: G70.00 Myasthenia gravis without (acute) exacerbation (principal)
CPT/HCPCS: 96365; 96366; J1459 ×2

== ENCOUNTER 2023-03-27 11:53 | Day surgery (SDC) | payer MEDICARE ==
[2023-03-27 17:17] VITALS: TEMP 97.9
[2023-03-27 17:22] VITALS: BP 139/63
== END 2023-03-27 15:58 | disposition home or self-care (01) ==
LOC: ONC/OP 11:53
PROVIDERS: ATTEND Psychiatry & Neurology Neurology
DX: G70.00 Myasthenia gravis without (acute) exacerbation (principal)
CPT/HCPCS: 96365; 96366; J1459 ×2

== ENCOUNTER 2023-04-03 11:48 | Outpatient (CLI) | payer MEDICARE | END 2023-04-03 11:49 | disposition home or self-care (01) | LOC: BICULT 11:48 | PROVIDERS: ATTEND Otolaryngology | DX: R93.89 Abnormal findings on diagnostic imaging of other specified body structures (principal); E04.2 Nontoxic multinodular goiter | CPT/HCPCS: 76536 ==

== ENCOUNTER 2023-06-19 11:30 | Day surgery (SDC) | payer MEDICARE ==
[2023-06-19] MEDS: Acetaminophen 500 MG TAB PO SCH (12:36)
[2023-06-19] MEDS ORDERED: diphenhydrAMINE 25 MG CAP ONE (12:36)
[2023-06-19] MEDS: diphenhydrAMINE 25 MG CAP PO SCH (12:36)
[2023-06-19] MEDS ORDERED: Acetaminophen 500 MG TAB ONE (12:36)
[2023-06-19] MEDS: Privigen 20 GM, Privigen 10 GM in Admixture Fee 1 EACH IVPB SCH (12:37)
[2023-06-19 16:53] VITALS: BP 178/83
[2023-06-19 16:56] VITALS: TEMP 97.6
== END 2023-06-19 15:25 | disposition home or self-care (01) ==
LOC: ONC/OP 11:30
PROVIDERS: ATTEND Psychiatry & Neurology Neurology
DX: G70.00 Myasthenia gravis without (acute) exacerbation (principal)
CPT/HCPCS: 96413; 96415; J1459 ×2

== ENCOUNTER 2023-09-19 11:42 | Day surgery (SDC) | payer MEDICARE ==
[~2023-09-19 11:42] MED LIST changes: +Acetaminophen 500 MG TAB PO SCH; +Privigen 40 GM in Admixture Fee 1 EACH IVPB SCH; +diphenhydrAMINE 25 MG CAP PO SCH
[2023-09-19] MEDS ORDERED: Acetaminophen 500 MG TAB ONE (12:57)
[2023-09-19] MEDS ORDERED: diphenhydrAMINE 25 MG CAP ONE (12:57)
[2023-09-19] MEDS: Acetaminophen 500 MG TAB PO SCH (12:58)
[2023-09-19] MEDS: diphenhydrAMINE 25 MG CAP PO SCH (12:58)
[2023-09-19] MEDS: Privigen 20 GM, Privigen 10 GM in Admixture Fee 1 EACH IVPB SCH (13:03)
[2023-09-19 15:31] VITALS: TEMP 98.2
[2023-09-19 15:32] VITALS: BP 149/79
== END 2023-09-19 15:38 | disposition home or self-care (01) ==
LOC: ONC/OP 11:42
PROVIDERS: ATTEND Psychiatry & Neurology Neurology
DX: G70.00 Myasthenia gravis without (acute) exacerbation (principal)
CPT/HCPCS: 96365; 96366; J1459 ×2

== ENCOUNTER 2023-10-09 12:33 | Day surgery (SDC) | payer MEDICARE ==
[2023-10-09] MEDS ORDERED: Acetaminophen 500 MG TAB ONE (12:37)
[2023-10-09] MEDS ORDERED: diphenhydrAMINE 25 MG CAP ONE (12:37)
[2023-10-09] MEDS: Acetaminophen 500 MG TAB PO SCH (12:42)
[2023-10-09] MEDS: diphenhydrAMINE 25 MG CAP PO SCH (12:42)
[2023-10-09] MEDS: Privigen 20 GM, Privigen 10 GM in Admixture Fee 1 EACH IVPB SCH (13:33)
[2023-10-09 13:41] VITALS: TEMP 98.5
[2023-10-09 16:14] VITALS: BP 179/75
== END 2023-10-09 16:14 | disposition home or self-care (01) ==
LOC: ONC/OP 12:33
PROVIDERS: ATTEND Psychiatry & Neurology Neurology
DX: G70.00 Myasthenia gravis without (acute) exacerbation (principal); I10 Essential (primary) hypertension; E78.00 Pure hypercholesterolemia, unspecified; E03.9 Hypothyroidism, unspecified; F32.A Depression, unspecified; Z96.659 Presence of unspecified artificial knee joint; Z96.649 Presence of unspecified artificial hip joint; Z79.890 Hormone replacement therapy; Z79.899 Other long term (current) drug therapy
CPT/HCPCS: 96365; 96366; J1459 ×2

== ENCOUNTER 2023-10-30 11:38 | Day surgery (SDC) | payer MEDICARE ==
[2023-10-30] MEDS ORDERED: Acetaminophen 500 MG TAB ONE (13:43)
[2023-10-30] MEDS ORDERED: diphenhydrAMINE 25 MG CAP ONE (13:43)
[2023-10-30] MEDS: Acetaminophen 500 MG TAB PO SCH (13:44)
[2023-10-30] MEDS: diphenhydrAMINE 25 MG CAP PO SCH (13:44)
[2023-10-30] MEDS: Privigen 20 GM, Privigen 10 GM in Admixture Fee 1 EACH IVPB SCH (13:46)
[2023-10-30 17:27] VITALS: BP 189/85; TEMP 97.6
== END 2023-10-30 17:28 | disposition home or self-care (01) ==
LOC: ONC/OP 11:38
PROVIDERS: ATTEND Psychiatry & Neurology Neurology
DX: G70.00 Myasthenia gravis without (acute) exacerbation (principal); I10 Essential (primary) hypertension; E03.9 Hypothyroidism, unspecified; F32.A Depression, unspecified; M19.90 Unspecified osteoarthritis, unspecified site; E78.00 Pure hypercholesterolemia, unspecified; Z96.659 Presence of unspecified artificial knee joint; Z96.649 Presence of unspecified artificial hip joint; Z79.899 Other long term (current) drug therapy
CPT/HCPCS: 96365; 96366; J1459 ×2

== ENCOUNTER 2023-11-20 10:10 | Day surgery (SDC) | payer MEDICARE ==
[~2023-11-20 10:10] MED LIST changes: -Privigen 40 GM in Admixture Fee 1 EACH IVPB SCH
[2023-11-20] MEDS ORDERED: Acetaminophen 500 MG TAB ONE (10:38)
[2023-11-20] MEDS ORDERED: diphenhydrAMINE 25 MG CAP ONE (10:38)
[2023-11-20] MEDS: Acetaminophen 500 MG TAB PO SCH (10:40)
[2023-11-20] MEDS: diphenhydrAMINE 25 MG CAP PO SCH (10:40)
[2023-11-20] MEDS: Privigen 20 GM, Privigen 10 GM in Admixture Fee 1 EACH IVPB SCH (11:45)
[2023-11-20 15:44] VITALS: TEMP 98
[2023-11-20 15:45] VITALS: BP 143/67
== END 2023-11-20 15:42 | disposition home or self-care (01) ==
LOC: ONC/OP 10:10
PROVIDERS: ATTEND Psychiatry & Neurology Neurology
DX: G70.00 Myasthenia gravis without (acute) exacerbation (principal)
CPT/HCPCS: 96365; 96366; J1459 ×2

== ENCOUNTER 2024-01-29 11:38 | Day surgery (SDC) | payer MEDICARE ==
[2024-01-29] MEDS ORDERED: Acetaminophen 500 MG TAB ONE (11:45)
[2024-01-29] MEDS ORDERED: diphenhydrAMINE 25 MG CAP ONE (11:45)
[2024-01-29] MEDS: Acetaminophen 500 MG TAB PO SCH (11:46)
[2024-01-29] MEDS: diphenhydrAMINE 25 MG CAP PO SCH (11:46)
[2024-01-29] MEDS: Privigen 10 GM, Privigen 20 GM in Admixture Fee 1 EACH IVPB SCH (12:38)
[2024-01-29 12:53] VITALS: TEMP 97.9
[2024-01-29 14:47] VITALS: BP 159/70
== END 2024-01-29 15:53 | disposition home or self-care (01) ==
LOC: ONC/OP 11:38
PROVIDERS: ATTEND Psychiatry & Neurology Neurology
DX: G70.00 Myasthenia gravis without (acute) exacerbation (principal)
CPT/HCPCS: 96365; 96366; J1459 ×2

== ENCOUNTER 2024-02-19 11:36 | Day surgery (SDC) | payer MEDICARE ==
[2024-02-19] MEDS ORDERED: Acetaminophen 500 MG TAB ONE (12:22)
[2024-02-19] MEDS ORDERED: diphenhydrAMINE 25 MG CAP ONE (12:22)
[2024-02-19] MEDS: Acetaminophen 500 MG TAB PO SCH (12:23)
[2024-02-19] MEDS: diphenhydrAMINE 25 MG CAP PO SCH (12:23)
[2024-02-19] MEDS: Privigen 10 GM, Privigen 20 GM in Admixture Fee 1 EACH IVPB SCH (12:34)
[2024-02-19 12:43] VITALS: TEMP 97.5
[2024-02-19 15:39] VITALS: BP 135/62
== END 2024-02-19 15:59 | disposition home or self-care (01) ==
LOC: ONC/OP 11:36
PROVIDERS: ATTEND Psychiatry & Neurology Neurology
DX: G70.00 Myasthenia gravis without (acute) exacerbation (principal)
CPT/HCPCS: 96365; 96366; J1459 ×2

== ENCOUNTER 2024-03-11 11:51 | Day surgery (SDC) | payer MEDICARE ==
[2024-03-11] MEDS ORDERED: diphenhydrAMINE 25 MG CAP ONE (12:00)
[2024-03-11] MEDS ORDERED: Acetaminophen 500 MG TAB ONE (12:00)
[2024-03-11] MEDS: Acetaminophen 500 MG TAB PO SCH (12:01)
[2024-03-11] MEDS: diphenhydrAMINE 25 MG CAP PO SCH (12:01)
[2024-03-11 12:18] VITALS: TEMP 98.2
[2024-03-11] MEDS: Privigen 10 GM, Privigen 20 GM in Admixture Fee 1 EACH IVPB SCH (13:46)
[2024-03-11 16:07] VITALS: BP 156/68
== END 2024-03-11 16:59 | disposition home or self-care (01) ==
LOC: ONC/OP 11:51
PROVIDERS: ATTEND Psychiatry & Neurology Neurology
DX: G70.00 Myasthenia gravis without (acute) exacerbation (principal); I10 Essential (primary) hypertension; E78.00 Pure hypercholesterolemia, unspecified; E03.9 Hypothyroidism, unspecified; F32.A Depression, unspecified; R93.89 Abnormal findings on diagnostic imaging of other specified body structures; Z96.659 Presence of unspecified artificial knee joint; Z96.649 Presence of unspecified artificial hip joint; Z79.899 Other long term (current) drug therapy
CPT/HCPCS: 96365; 96366; J1459 ×2

== ENCOUNTER 2024-04-01 11:36 | Day surgery (SDC) | payer MEDICARE ==
[2024-04-01] MEDS ORDERED: Acetaminophen 500 MG TAB ONE (11:58)
[2024-04-01] MEDS ORDERED: diphenhydrAMINE 25 MG CAP ONE (11:58)
[2024-04-01] MEDS: Acetaminophen 500 MG TAB PO SCH (11:59)
[2024-04-01] MEDS: diphenhydrAMINE 25 MG CAP PO SCH (11:59)
[2024-04-01 12:13] VITALS: TEMP 97.4
[2024-04-01] MEDS: Privigen 10 GM, Privigen 20 GM in Admixture Fee 1 EACH IVPB SCH (12:28)
[2024-04-01 14:39] VITALS: BP 126/59
== END 2024-04-01 15:08 | disposition home or self-care (01) ==
LOC: ONC/OP 11:36
PROVIDERS: ATTEND Psychiatry & Neurology Neurology
DX: G70.00 Myasthenia gravis without (acute) exacerbation (principal)
CPT/HCPCS: 96365; 96366; J1459 ×2

== ENCOUNTER 2024-04-22 11:44 | Day surgery (SDC) | payer MEDICARE ==
[2024-04-22] MEDS ORDERED: diphenhydrAMINE 25 MG CAP ONE (11:47)
[2024-04-22] MEDS ORDERED: Acetaminophen 500 MG TAB ONE (11:47)
[2024-04-22] MEDS: diphenhydrAMINE 25 MG CAP PO SCH (11:48)
[2024-04-22] MEDS: Acetaminophen 500 MG TAB PO SCH (11:48)
[2024-04-22] MEDS: Privigen 10 GM, Privigen 20 GM in Admixture Fee 1 EACH IVPB SCH (12:19)
[2024-04-22 16:09] VITALS: TEMP 97.4
[2024-04-22 16:13] VITALS: BP 145/65
== END 2024-04-22 16:12 | disposition home or self-care (01) ==
LOC: ONC/OP 11:44
PROVIDERS: ATTEND Internal Medicine
DX: G70.00 Myasthenia gravis without (acute) exacerbation (principal); I10 Essential (primary) hypertension; E78.00 Pure hypercholesterolemia, unspecified; F32.A Depression, unspecified; Z96.649 Presence of unspecified artificial hip joint; Z79.899 Other long term (current) drug therapy; Z96.659 Presence of unspecified artificial knee joint; Z98.890 Other specified postprocedural states
CPT/HCPCS: 96365; 96366; J1459 ×2

== ENCOUNTER 2024-05-13 11:43 | Day surgery (SDC) | payer MEDICARE ==
[~2024-05-13 11:43] MED LIST changes: -Acetaminophen 500 MG TAB PO SCH; -diphenhydrAMINE 25 MG CAP PO SCH
[2024-05-13] MEDS ORDERED: Acetaminophen 500 MG TAB ONE (11:50)
[2024-05-13] MEDS ORDERED: diphenhydrAMINE 25 MG CAP ONE (11:50)
[2024-05-13] MEDS: Acetaminophen 500 MG TAB PO SCH (11:51)
[2024-05-13] MEDS: diphenhydrAMINE 25 MG CAP PO SCH (11:51)
[2024-05-13 12:15] VITALS: TEMP 98.2
[2024-05-13 15:45] VITALS: BP 133/61
== END 2024-05-13 16:05 | disposition home or self-care (01) ==
LOC: ONC/OP 11:43
PROVIDERS: ATTEND Psychiatry & Neurology Neurology
DX: G70.00 Myasthenia gravis without (acute) exacerbation (principal)
CPT/HCPCS: 96365; 96366; J1459 ×2

== ENCOUNTER 2024-06-03 12:05 | Day surgery (SDC) | payer MEDICARE ==
[2024-06-03] MEDS ORDERED: diphenhydrAMINE 25 MG CAP ONE (12:48)
[2024-06-03] MEDS ORDERED: Acetaminophen 500 MG TAB ONE (12:48)
[2024-06-03] MEDS: Acetaminophen 500 MG TAB PO SCH (12:49)
[2024-06-03] MEDS: diphenhydrAMINE 25 MG CAP PO SCH (12:50)
[2024-06-03] MEDS: Privigen 10 GM, Privigen 20 GM in Admixture Fee 1 EACH IVPB SCH (13:04)
[2024-06-03 16:34] VITALS: BP 133/60; TEMP 97.7
== END 2024-06-03 13:42 | disposition home or self-care (01) ==
LOC: ONC/OP 12:05
PROVIDERS: ATTEND Psychiatry & Neurology Neurology
DX: G70.00 Myasthenia gravis without (acute) exacerbation (principal)
CPT/HCPCS: 96365; 96366; J1459 ×2